=== PATIENT | male | born 1990 | race Caucasian/White ===

== ENCOUNTER 2024-07-16 21:33 | Emergency (ER) | payer MEDICAID ==
[~2024-07-16] VITALS: Ht 165.1 cm; Wt 70.0 kg
[2024-07-16 21:45] VITALS: O2SAT 98
[2024-07-16] MEDS: KETOROLAC 15MG/ML VIAL IM ONE (23:45)
[2024-07-17] MEDS ORDERED: NAPR-1176 MT (01:30)
[2024-07-17] MEDS ORDERED: LIDO700A15 TP (01:30)
[2024-07-17] MEDS: KETOROLAC 15MG/ML VIAL IM NR (01:57)
[2024-07-17 01:58] VITALS: BP 128/92; PULSE 98; RESP 18; TEMP 36.89184; O2SAT 98
== END 2024-07-17 02:01 | disposition home or self-care (01) ==
LOC: ER 21:33
DX: M79.673 Pain in unspecified foot (principal); M25.571 Pain in right ankle and joints of right foot; Z79.1 Long term (current) use of non-steroidal anti-inflammatories (NSAID)
CPT/HCPCS: 99283; 73610; 96372; J1885